=== PATIENT | female | born 1960 | race Caucasian/White ===

== ENCOUNTER 2016-05-25 09:45 | Emergency (ER) | payer MEDICARE, OTHER | END 2016-05-25 14:23 | disposition home or self-care (01) | LOC: ER 09:45 | DX: R41.82 Altered mental status, unspecified (principal); R53.83 Other fatigue; N30.00 Acute cystitis without hematuria; T42.3X5A Adverse effect of barbiturates, initial encounter; R79.89 Other specified abnormal findings of blood chemistry; Z86.73 Personal history of transient ischemic attack (TIA), and cerebral infarction without residual deficits | CPT/HCPCS: 36415; 70450; 71010; 80053; 80184; 81001; 82947; 85025; 85610; 87088; 93005 ==